=== PATIENT | male | born 1945 | race Caucasian/White ===

== ENCOUNTER → 2018-02-05 | Outpatient (CLI) | payer MEDICARE ==
[~2018-02-05] MED LIST: ALBU90OI INH; ALBU90OI61 INH; ASPI81CH; ATOR20 PO; BUPR75 PO; BUSP5 PO; Bactrim 400-801 EACH PO; CHOL10002; DOCU100 PO; ENOX40I; ENOX80I; ESCI5 PO; FISH1000 PO; FLUO25TC; Flovent Diskus50 MCG IH; GABA600 PO; IRON150C PO; IRON256 MG PO; LISI20 PO; MULVITMIND PO; NYST100TC TOP; OMEP20ER; OXYC5 PO; PROBIOTIC1 EAC2 PO; SILD25T PO; Sulfamethoxazo1 EAC4 PO; TAMS.4ER PO; TELM40; TORS10; TRIA80TC; TRIHYD253A
== END | disposition home or self-care (01) ==
LOC: EDSTATUS 08:59 → LAB SHORT 10:25 → PLD 10:25
DX: C44.622 Squamous cell carcinoma of skin of right upper limb, including shoulder (principal)
CPT/HCPCS: 88305

== ENCOUNTER → 2020-07-25 | Outpatient (CLI) | payer MEDICARE | LOC: PLD 14:41 → LAB SHORT 14:41 | DX: C44.629 Squamous cell carcinoma of skin of left upper limb, including shoulder (principal) | CPT/HCPCS: 88305 ==

== ENCOUNTER → 2021-07-15 | Outpatient (CLI) | payer OTHER ==
[2021-07-15 12:26] LABS: Protein, Urine Quantitative 7.7 mg/dL (0.0-11.9)
[2021-07-15 12:33] LABS: Microalbumin, Urine Quant. <5.000 mg/L (0.000-20.000)
== END | disposition home or self-care (01) ==
LOC: LAB FUT 07-13 16:40 → OLS 07:00 → LAB SHORT 07:00
PROVIDERS: Internal Medicine Nephrology
DX: N18.30 Chronic kidney disease, stage 3 unspecified (principal); D63.1 Anemia in chronic kidney disease; N25.81 Secondary hyperparathyroidism of renal origin; D51.8 Other vitamin B12 deficiency anemias; D52.8 Other folate deficiency anemias; D50.9 Iron deficiency anemia, unspecified; E55.9 Vitamin D deficiency, unspecified; E78.00 Pure hypercholesterolemia, unspecified; R94.5 Abnormal results of liver function studies; R94.6 Abnormal results of thyroid function studies; R76.9 Abnormal immunological finding in serum, unspecified
CPT/HCPCS: 81050; 82043; 82570; 84156

== ENCOUNTER → 2025-05-12 | Outpatient (CLI) | payer OTHER ==
[~2025-05-12] MED LIST changes: +ALMACONE SUSPE355 ML PO; -ASPI81CH; +ASPI81CH PO; -CHOL10002; +FISH OIL 1,0001 EA10 PO; -FISH1000 PO; -OMEP20ER; +OMEP20ER PO; +TADA10TA PO; -TORS10; +TORS10 PO; +VITAMIN D31000 UNIT PO
== END ==
LOC: LAB SHORT 16:09 → LAB 16:09
DX: N39.0 Urinary tract infection, site not specified (principal)
CPT/HCPCS: 87086